=== PATIENT | female | born 2000 | race Two or more races ===

== ENCOUNTER 2025-01-07 08:24 | Emergency (ER) | payer MEDICAID, SELFPAY ==
[2025-01-07 08:26] VITALS: BMI 21.2
--- NOTE | 2025-01-07 08:28 | EKG_ITS ---
[facility] Test Date: 2025-01-07 Pat Name: ZELDA ORR Department: Room: - Gender: Female Jacker Feeder: : [id number] Requested By: Zbigniew Nguyen Order Number: [id number] Reading MD: Zbigniew Nguyen Measurements Intervals Earling Rate: 90 P: 54 HI: 131 QRS: 65 QRSD: 89 T: 47 QT: 331 QTc: 405 Interpretive Statements SINUS RHYTHM No previous ECG available for comparison /store/[email or web address]/[id number]/[id number].pdf
[2025-01-07 08:57] VITALS: BP 127/82; PULSE 89; RESP 18; TEMP 36.9; O2SAT 100
--- NOTE | 2025-01-07 09:05 | XR_ITS ---
EXAMINATION: PA lateral chest 2 views TECHNIQUE: Upright PA lateral chest 2 views Date and time: January 07, 2025, 0911 hours INDICATIONS: Tachycardia cold sweats chest pain post COVID 14 days FINDINGS: Normal heart size Lungs are clear. Osseous structures are intact. IMPRESSION: No active disease
--- NOTE | 2025-01-07 09:06 | EDNOTE_ITS ---
ED Arrhythmia Palp. RME/HPI General Chief Complaint: Arrhythmia/Palpitations Stated Complaint: HEART RACING,FAN,DIARRHEA,COLD SWEATS ON/OFF 14 DAY Time Seen by Provider: 01/07/25 08:48 Source: patient Arrival date/time: 01/07/25 08:24 24-year-old female with no known medical history presents to the emergency room with a chief complaint of chest pain, palpitations, cold sweats, diarrhea x 4 days Mode of arrival: ambulatory Limitations: no limitations Related Data Allergies Allergy/AdvReac Type Severity Reaction Status Date / Time No Known Allergies Allergy Verified 01/07/25 08:27 Review of Systems Review of Systems Systems Reviewed: All systems reviewed, normal except as documented Constitutional Constitutional: Reports system reviewed and no additional complaints, except as documented, Denies fatigue, Denies fever(s), Denies headache(s) and Denies weakness Eyes Eyes: Reports system reviewed and no additional complaints, except as documented, Denies blurry vision and Denies change in vision ENT Ears, Nose, Mouth, and Throat: Reports system reviewed and no additional complaints, except as documented, Denies otalgia, Denies headache(s), Denies nasal congestion, Denies throat swelling and Denies vertigo Cardiovascular Cardiovascular: Reports system reviewed and no additional complaints, except as documented, Reports chest pain, Denies dyspnea, Denies dyspnea on exertion and Reports palpitations Respiratory Respiratory: Reports system reviewed and no additional complaints, except as documented, Denies chest congestion, Denies cough, Denies dyspnea, Denies dyspnea on exertion and Denies wheezing Gastrointestinal Gastrointestinal: Reports system reviewed and no additional complaints, except as documented, Denies abdominal pain, Denies cramping, Denies nausea and Denies vomiting Genitourinary Genitourinary: Reports system reviewed and no additional complaints, except as documented Musculoskeletal Musculoskeletal: Reports system reviewed and no additional complaints, except as documented and Denies back pain Integumentary/Breasts Skin/Breast: Reports system reviewed and no additional complaints, except as documented and Denies wounds Neurologic Neurologic: Reports system reviewed and no additional complaints, except as documented, Denies confusion, Denies headache(s), Denies lack of coordination, Denies vertigo and Denies weakness Psychiatric Psychiatric: Reports system reviewed and no additional complaints, except as documented, Denies anxiety, Denies confusion, Denies depression, Denies paranoia, Denies suicidal ideation and Denies tactile hallucinations Endocrine Endocrine: Reports system reviewed and no additional complaints, except as documented, Denies fatigue and Reports palpitations Hematologic/Lymphatic Hematologic/Lymphatic: Reports system reviewed and no additional complaints, except as documented and Denies lymphadenopathy Allergic/Immunologic Allergic/Immunologic: Reports system reviewed and no additional complaints, except as documented, Denies throat swelling, Denies urticaria and Denies wheezing Past Medical History Social History SMOKING STATUS: Never smoker ED Exam General Limitations: Present no limitations General appearance: Present alert and in no apparent distress Head Head exam: Present atraumatic Eye Eye exam: Present normal appearance, PERRL and EOMI ENT ENT exam: Present normal exam, normal oropharynx and mucous membranes moist Neck Neck exam: Present normal inspection, full ROM and trachea midline Chest Chest inspection: Present normal inspection and symmetric chest wall rise Respiratory Respiratory exam: Present normal lung sounds bilaterally; Absent respiratory distress, wheezes, stridor, accessory muscle use or prolonged expiratory phase Cardiovascular Cardiovascular exam: Present regular rate, normal rhythm, normal heart sounds, +S1 and +S2; Absent tachycardia or irregular rhythm Abdominal Exam Abdominal exam: Present soft and normal bowel sounds; Absent tenderness Extremities Exam Extremities exam: Present normal inspection and full ROM Back Exam Back exam: Present normal inspection and full ROM Neurological Exam Neurological exam: Present alert, oriented X3 and CN II-XII intact Psychiatric Psychiatric exam: Present normal affect and normal mood Skin Skin exam: Present warm, dry, intact and normal color Course Quality Measures none Orders Category Date Time Status EKG (ED ONLY) *Do not use* NOW Care 01/07/25 08:28 Completed EKG (ED Only) Stat Exams 01/07/25 08:28 Draft XR chest 2V Stat Exams 01/07/25 09:05 Ordered B-Type Natriuretic Peptide Stat Lab 01/07/25 09:05 Ordered CBC Stat Lab 01/07/25 09:05 Ordered Cocci Serology IgM with reflex to IgG [Cocci Serology, Lab 01/07/25 09:06 Ordered Unk History] Stat Comprehensive Metabolic Panel Stat Lab 01/07/25 09:05 Ordered Drug Screen,Urine Stat Lab 01/07/25 09:05 Ordered Free T4 (Free Thyroxine) Stat Lab 01/07/25 09:06 Ordered Lipase Stat Lab 01/07/25 09:06 Ordered Magnesium Stat Lab 01/07/25 09:05 Ordered TSH [Thyroid Stimulating Hormone] Stat Lab 01/07/25 09:06 Ordered Troponin I Stat Lab 01/07/25 09:05 Ordered Urinalysis, C/S if Indicated Stat Lab 01/07/25 09:05 Ordered Vital Signs Vital signs: Vital Signs Temperature 98.5 F 01/07/25 08:57 Pulse Rate 89 01/07/25 08:57 Respiratory Rate 18 01/07/25 08:57 Blood Pressure 127/82 01/07/25 08:57 Pulse Oximetry (%) 100 01/07/25 08:57 Oxygen Delivery Method Room Air 01/07/25 08:57 Arrhythmia/Palpitations MDM Narrative MDM Narrative:: 24-year-old female with no known medical history presents to the emergency room with a chief complaint of chest pain, palpitations, cold sweats, diarrhea x 4 days Patient is hemodynamically stable and in no apparent distress Physical examination shows tenderness and pain to the epigastric area of the patient's abdomen. The patient has a strong and regular rhythm S1-S2 noted no clicks no gallops Lung sounds are clear bilaterally there is no wheezing or any abnormal breath sounds EKG was completed and showed normal sinus rhythm at [address] deviation. CBC CMP were negative for any leukocytosis. Chest x-ray was negative for any acute findings Patient was discharged and educated to follow-up with primary care provider in the next 24 to 48 hours and return to the emergency room for any evidence of worsening signs or symptoms Patient data External records reviewed:: [facility] previous records Clinical information provided by:: patient Social determinants that could affect healthcare access:: none Patient has the following chronic illnesses:: No chronic illness How is presenting disease/condition affected by chronic disease/condition?: no chronic disease Evaluation data The following diagnostics were reviewed and interpreted by me:: lab results and radiology exam(s) Lab and/or radiology exams considered but not ordered:: Labs and radiology exams considered and ordered Interpretation Summary: FINDINGS: Normal heart size Lungs are clear. Osseous structures are intact. IMPRESSION: No active disease Medications / Prescriptions Medications or Prescriptions considered but not ordered:: No medication given Medication administrations:: No medication given Consultations Consultation(s) initiated? (list below): No Diagnosis Differential diagnosis arrhythmia/palpitations: palpitations, anxiety and other (Chest pain) Most likely diagnosis given after review of the tests above:: Palpitations/gastritis Admission Indicated Admission indicated?: not indicated Admission Request Was there a request for admission?: No Disposition Plan Disposition Plan: Discharge Discharge Attestation Discharge Attestation: The patient and all family members were given an opportunity to ask questions and understood the discharge instructions. Discharge instructions specifically effects, indications for sooner follow up or return to the emergency department, and the expected course of current diagnosis. Patient condition: Stable Discharge Plan Plan Patient Disposition: HOME (Self Care) Discharge Disposition comment: Stable Prescriptions/Referrals Referrals: Raffi Bernard MD [Primary Care Provider, Family Practice] - In 1 week Problem List Clinical Impression: Palpitations, Gastritis Patient/Caregiver Discharge Instructions Education Materials: ED Gastritis (Adult), ED Palpitations Additional Instructions: Please follow-up with your primary care provider in the next 24 to 48 hours Your cardiac workup was within normal limits. Your blood work was within normal limits and urinalysis was within normal limits. Your EKG shows normal sinus rhythm. 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
[2025-01-07 09:58] LABS: Collection Type, Urine Clean Catch
[2025-01-07 10:17] LABS: B-Type Natriuretic Peptide < 20 pg/mL (0-100)
[2025-01-07 10:32] LABS: Alanine Aminotransferase 11 U/L (10-49); Albumin, Serum 4.6 gm/dL (3.5-5.0); Albumin/Globulin Ratio 2.1 (1.2-2.2); Alkaline Phosphatase 61 U/L (46-116); Anion Gap 11 (7-16); Aspartate Amino Transferase 17 U/L (0-34); BUN/Creatinine Ratio 10 Ratio (12-20); Bilirubin,Total 0.5 mg/dL (0.3-1.2); Blood Urea Nitrogen 7 mg/dL (9-23); Calcium 9.4 mg/dL (8.3-10.6); Calcium (Corrected) 9.4 mg/dL (8.5-10.1); Carbon Dioxide 25.3 mMol/L (20.0-31.0); Chloride 107 mMol/L (98-107); Creatinine (Component) 0.7 mg/dL (0.6-1.3); Estimated Creatinine Clearance 102.5 mL/min (>60); Free T4 (Free Thyroxine) 1.43 ng/dL (0.89-1.76); Globulin 2.2 gm/dL (2.3-3.5); Glucose 87 mg/dL (74-106); Lipase 33 U/L (12-53); Magnesium 1.6 mg/dL (1.6-2.6); Osmolality,Calculated 281 (275-295); Potassium 3.9 mMol/L (3.4-5.1); Sodium 143 mMol/L (136-145); Thyroid Stimulating Hormone 0.86 uIU/mL (0.55-4.78); Total Protein 6.8 gm/dL (5.7-8.2); Troponin I < 0.002 ng/mL (0.0-0.045); eGFR > 60 See Note
[2025-01-07 10:36] LABS: Amorphous Crystals,Urine Present (Absent); Bacteria,Urine Rare; Bilirubin,Urine Negative (Negative); Blood,Urine Negative (Negative); Color,Urine Yellow (Lt Yel-Yel); Culture Indicated,Urine Not Indicated; Glucose, Urine Negative (Negative); Ketones,Urine 4+ (Negative); Leukocyte Esterase,Urine Negative (Negative); Nitrite,Urine Negative (Negative); PH,Urine 7.5 (5.0-7.0); Protein,Urine Trace (Neg - Trace); RBC,Urine 16 /hpf (0-3); Specific Gravity,Urine 1.025 (1.001-1.035); Squamous Epithelial Cell,Urine 8 /hpf (0-5); Urobilinogen,Urine Negative mg/dL (0.0-1.0); WBC,Urine 2 /hpf (0-5)
[2025-01-07 10:36] LABS: Basophils # (Auto) 0.1 Thou/mm3 (0.0-0.2); Basophils % (Auto) 1 % (0-2.5); Eosinophils # (Auto) 0.0 Thou/mm3 (0.0-0.5); Eosinophils % (Auto) 0 % (0-10); Hematocrit 41.3 % (36.0-46.0); Hemoglobin 14.2 g/dL (12.0-16.0); Immature Granulocytes Auto 0.02 Thou/mm3 (0.00-0.00); Lymphocytes # (Auto) 1.5 Thou/mm3 (1.0-4.8); Lymphocytes % (Auto) 20 % (10-50); Mean Corpuscular HGB Conc 34.4 g/dl (31.0-37.0); Mean Corpuscular Hemoglobin 30.0 pg (25.0-35.0); Mean Corpuscular Volume 87 fL (80-100); Monocytes # (Auto) 0.5 Thou/mm3 (0.0-0.8); Monocytes % (Auto) 7 % (0-12); Neutrophils # (Auto) 5.6 Thou/mm3 (1.8-7.7); Neutrophils % (Auto) 72 % (37-80); Nucleated Red Blood Cell # 0.00 Thou/mm3 (0.00-0.00); Nucleated Red Blood Cell % 0 /100 WBC (0); Platelet Count 192 Thou/mm3 (140-440); RDW Standard Deviation 38.4 fL (36.4-46.3); Red Blood Count 4.74 Miln/mm3 (4.00-5.20); White Blood Count 7.7 Thou/mm3 (3.6-11.0)
[2025-01-07 11:03] LABS: Clarity,Urine Cloudy (Clear/Hazy)
[2025-01-07 14:39] LABS: Cocci Serology, IgM Negative (Negative)
[2025-01-08 14:39] LABS: Cocci Serology, IgG Negative (Negative)
== END 2025-01-07 11:25 | disposition home or self-care (01) ==
PROVIDERS: Emergency Provider Nurse Practitioner Family; PCP Family Medicine
DX: I49.9 Cardiac arrhythmia, unspecified (principal); K29.70 Gastritis, unspecified, without bleeding
CPT/HCPCS: 36415; 71046; 80053; 80307; 81001; 83690; 83735; 83880; 84439; 84443; 84484; 85025; 86331; 86635; 93005; 99283